=== PATIENT | female | born 1945 | race Caucasian/White ===

== ENCOUNTER → 2025-02-28 | Day surgery (SDC) | payer MEDICARE, BC ==
[2025-02-20 15:30] LABS: BASOPHILS % 0.4 % (0.0-1.0); EOSINOPHILS % 4.2 % (0.0-6.0); LYMPHOCYTES % 30.5 % (18.0-39.1); MONOCYTES % 5.7 % (4.4-11.3); NEUTROPHILS % 58.8 % (38.7-80.0); RED CELL DISTRIBUTION WIDTH 14.8 % (11.7-14.4)
[~2025-02-28] MED LIST: ACETAMINOPHEN 1000 MG/100 ML 100 ML IV ONE; ALEVE220 M1 PO; ALLEGRA-D 24 H1 EACH PO; CALCIUM MAGNES1 EAC1 PO; DEXAMETHASONE SOD PHOS INJ 4 MG/ML SDV ONE; EFFEXOR XR 3737.5 MG PO; EPHEDRINE SULFATE INJ 50 MG/ML VIAL ONE; FENTANYL CITRATE/PF 100MCG/2 ML INJ ONE; FERROUS SULFAT325 MG PO; FLONASE ALLERG9.9 ML INH; IRON PO; KETOROLAC TROMETHAMINE 30 MG/ML VIAL ONE; LIDOCAINE HCL 2% LOCAL INJ 5 ML SDV VIAL INJ ONE; LIPITOR10 MG PO; LOSARTAN POTASS50 MG PO; LOSARTAN-HCTZ1 EAC2 PO; METOPROLOL SUCC25 MG PO; MULTI-VITAMIN1 EACH PO; NEXIUM40 MG PO; PROPOFOL IV EMULSION 10 MG/ML 20 ML VIAL ONE; SEVOFLURANE INHAL SOLN 250 ML PEN BTL ONE; SINGULAIR10 MG PO; ULTRAM 50MG50 MG PO; XANAX1 MG PO
[2025-02-28] MEDS: LACTATED RINGER'S 1,000 ML ONE (06:20)
[2025-02-28 07:16] LABS: EST GLOMERULAR FILTRATION RATE 59.0 ML/MIN (>=60)
[2025-02-28] MEDS: SCOPOLAMINE 1 MG PATCH ONE (07:29)
[2025-02-28 08:17] VITALS: BP 129/79; PULSE 74; RESP 18; O2SAT 99
== END | disposition home or self-care (01) ==
LOC: OR 05:31
PROVIDERS: ATTEND Plastic Surgery
DX: G56.02 Carpal tunnel syndrome, left upper limb (principal); M65.822 Other synovitis and tenosynovitis, left upper arm; I10 Essential (primary) hypertension; E78.2 Mixed hyperlipidemia; J45.909 Unspecified asthma, uncomplicated; G47.33 Obstructive sleep apnea (adult) (pediatric); K21.9 Gastro-esophageal reflux disease without esophagitis; K58.9 Irritable bowel syndrome, unspecified; M16.9 Osteoarthritis of hip, unspecified; H90.3 Sensorineural hearing loss, bilateral; F32.A Depression, unspecified; F41.9 Anxiety disorder, unspecified; Z88.5 Allergy status to narcotic agent; Z79.899 Other long term (current) drug therapy; Z79.1 Long term (current) use of non-steroidal anti-inflammatories (NSAID); Z68.30 Body mass index [BMI] 30.0-30.9, adult; Z01.810 Encounter for preprocedural cardiovascular examination; Z01.812 Encounter for preprocedural laboratory examination
CPT/HCPCS: 25115; 36415 ×2; 64721; 71046; 80048; 85025; 93005; J0131; J0690; J1100; J1885; J2003; J2704; J3010; J7121